=== PATIENT | female | born 1945 | race Asian ===

== ENCOUNTER 2022-05-24 06:22 | Day surgery (SDC) | payer OTHER ==
[2022-05-19 16:05] VITALS: BMI 19.8
[2022-05-24] MEDS ORDERED: BUPIVACAINE LIPOSOME/PF (EXPAREL) 266 MG/20 ML VIAL ONE (07:18)
[2022-05-24] MEDS ORDERED: MIDAZOLAM HCL 2 MG/2 ML SINGLE DOSE VIAL ONE ×3 (07:18→08:08)
[2022-05-24] MEDS ORDERED: DEXAMETHASONE SOD PHOSPHATE 4 MG/1 ML VIAL ONE (07:18)
[2022-05-24] MEDS ORDERED: ONDANSETRON 4 MG/2 ML VIAL ONE ×2 (07:18→09:25)
[2022-05-24] MEDS ORDERED: BUPIVACAINE HCL/PF 0.5% (5MG/ML) 10 ML VIAL ONE (07:19)
[2022-05-24] MEDS ORDERED: SUCCINYLCHOLINE CHLORIDE 200 MG/10 ML SYRINGE ONE (07:27)
[2022-05-24] MEDS ORDERED: TRANEXAMIC ACID 1000 MG/10 ML VIAL IVPUSH ONE (07:30)
[2022-05-24] MEDS ORDERED: CEFAZOLIN 2 GM in DEXTROSE 5%-WATER - 50 ML IVPB ONE (07:30)
[2022-05-24] MEDS ORDERED: SCOPOLAMINE HYDROBROMIDE 1 PATCH PATCH.TD72 ONE (07:44)
[2022-05-24] MEDS ORDERED: ONDANSETRON 4 MG/2 ML VIAL IVPUSH PRN (08:36)
[2022-05-24] MEDS ORDERED: TRANEXAMIC ACID 1000 MG/10 ML VIAL ONE (08:41)
[2022-05-24] MEDS ORDERED: LIDOCAINE HCL/PF 2% SDV 5ML VIAL ONE ×2 (08:41→09:39)
[2022-05-24] MEDS ORDERED: ceFAZolin SODIUM 1 GM VIAL ONE (08:41)
[2022-05-24] MEDS ORDERED: PROPOFOL 20 ML ONE (09:39)
[2022-05-24] MEDS ORDERED: KETOROLAC TROMETHAMINE 30 MG/1 ML VIAL IVPUSH SCH (10:00)
[2022-05-24] MEDS ORDERED: ACETAMINOPHEN 1000 MG/100 ML BAG IVPB ONE (10:00)
[2022-05-24] MEDS ORDERED: ACETAMINOPHEN INJECTION 100 ML IVPB ONE (10:16)
[2022-05-24] MEDS ORDERED: HYDROmorphone HCL 2 MG TABLET PO PRN (12:54)
[2022-05-24 13:20] VITALS: RESP 18
[2022-05-24] MEDS: INSULIN SLIDING SCALE (NOVOLOG) 1 VIAL SQ SCH ×3 (15:39→21:39)
[2022-05-24] MEDS: LACTATED RINGERS SOLUTION 1,000 ML IV SCH (15:39)
[2022-05-24] MEDS: KETOROLAC TROMETHAMINE 30 MG/1 ML VIAL IVPUSH SCH ×2 (18:06→23:16)
[2022-05-24] MEDS: CEFAZOLIN SODIUM 2 GM in DEXTROSE 5%-WATER 100 ML IVPB SCH (18:06)
[2022-05-24] MEDS: ACETAMINOPHEN 500 MG TABLET (FP) PO SCH (18:07)
[2022-05-24] MEDS: ASPIRIN 81 MG CHEWABLE TABLETS PO SCH (21:39)
[2022-05-24] MEDS: traMADol HCL 50 MG TABLET PO PRN (21:40)
[2022-05-24] MEDS ORDERED: PATIENT'S OWN MEDICATION (NON-FORMULARY) (Losartan Potassium [Losartan Potassium] 100 MG T PO SCH (22:00)
[2022-05-24] MEDS ORDERED: FAMOTIDINE 20 MG TABLET PO SCH (22:00)
[2022-05-24] MEDS ORDERED: ATORVASTATIN CA 10 MG TABLET (FP) PO SCH (22:00)
[2022-05-24] MEDS ORDERED: MONTELUKAST NA 5 MG TAB.CHEW PO SCH (22:00)
[2022-05-25] MEDS: CEFAZOLIN SODIUM 2 GM in DEXTROSE 5%-WATER 100 ML IVPB SCH (01:43)
[2022-05-25] MEDS: ACETAMINOPHEN 500 MG TABLET (FP) PO SCH ×2 (01:43→09:41)
[2022-05-25] MEDS: INSULIN SLIDING SCALE (NOVOLOG) 1 VIAL SQ SCH ×2 (06:23→13:25)
[2022-05-25] MEDS: traMADol HCL 50 MG TABLET PO PRN (09:40)
[2022-05-25] MEDS: ASPIRIN 81 MG CHEWABLE TABLETS PO SCH (09:41)
[2022-05-25] MEDS ORDERED: ATORVASTATIN CA 10 MG TABLET (FP) PO SCH (10:00)
[2022-05-25] MEDS ORDERED: LOSARTAN POTASSIUM 50 MG TABLET PO SCH (10:00)
[2022-05-25] MEDS ORDERED: IBUPROFEN 600 MG TABLET (FP) PO PRN (10:00)
[2022-05-25 11:45] LABS: HEMATOCRIT 31.5 % (32.4-45.2); MCH 31.8 pg (25.7-33.7); MCHC 34.8 g/dl (32.0-36.0); MEAN CELL VOLUME 91.4 fl (80-96); MEAN PLT VOLUME 8.6 fl (7.5-11.1); PLATELET COUNT 248.1 10^3/uL (134-434); RBC 3.45 10^6/uL (3.60-5.2); RDW 14.5 % (11.6-15.6); WHITE BLOOD COUNT 13.8 10^3/uL (4.0-10.8)
[2022-05-25 11:56] LABS: ALBUMIN 3.5 g/dl (3.4-5.0); BILIRUBIN,TOTAL 0.6 mg/dl (0.2-1); CALCIUM 9.2 mg/dl (8.5-10); CREATININE 0.9 mg/dl (0.55-1.3); TOT PROT 6.5 g/dl (6.4-8.2)
[2022-05-25] MEDS ORDERED: CEPHALEXIN MONOHYDRATE 250 MG CAPSULE (FP) PO ONE (13:00)
[2022-05-25] MEDS: LACTATED RINGERS SOLUTION 1,000 ML IV SCH (13:29)
[2022-05-25 14:20] VITALS: BP 138/61; PULSE 76; TEMP 98
[2022-05-25 14:55] LABS: PLATELET ESTIMATE ADEQUATE
== END 2022-05-25 16:34 | disposition home or self-care (01) ==
LOC: FASUSAT 06:22 → FM/S 11:58 → FASUSAT 05-25 16:34
PROVIDERS: ATTEND Orthopaedic Surgery
PROC: 0SRC0J9 Replacement of Right Knee Joint with Synthetic Substitute, Cemented, Open Approach (ICD-10-PCS; principal; 2022-05-24 08:33)
DX: M17.11 Unilateral primary osteoarthritis, right knee (principal)
CPT/HCPCS: 27447; C1776; 36415; 73560-TC-RT-FY; 80053; 82962; 85027; 88305-TC; 88311-TC; 94760; 97010-GP; 97116-GP; 97162-GP; C1889